=== PATIENT | female | born 1955 ===

== ENCOUNTER → 2017-01-23 | Day surgery (SDC) | payer BC ==
[2017-01-23] VITALS (15 sets, daily range): BP systolic 101–138; BP diastolic 51–72
[~2017-01-23] VITALS: Ht 157.5 cm; Wt 77.1 kg
[~2017-01-23] MED LIST: Bupivacaine w/Epi 0.25% 30ml Vial INJ ONE; CALCIUM600 M1 PO; Dexamethasone 4mg/ml vial ONE; Glycopyrrolate 0.2mg/ml 1ml Vial ONE; HYDROmorphone 1mg/ml Carpuject SUBQ PRN; Hydromorphone 0.5mg/0.5ml inj IVP PRN; Iothalamate Meglumine 60% 30ML INJ ONE; Isovue-M 300 INJ ONE; LOSARTAN POTASS25 MG ORAL; Metoclopramide 10mg/2ml Inj IVP ONE; Metoclopramide 10mg/2ml Inj ONE; Midazolam 2mg/2ml Inj ONE; NS Irrig 1000ml ONE; Neostigmine 1mg/ml 10ml Inj ONE; Norco 5mg/325mg tab ORAL PRN; Propofol 10mg/ml 20ml IV ONE; Sterile Water Irrig 1000ml IRRIG ONE; Succinylcholine 20mg/ml 10ml vial ONE; VITAMIN D1000 UNI1 ORAL; Zemuron 50mg/5ml Inj IV ONE; fentaNYL 100 mcg/2 mL IV ONE
--- NOTE | 2017-01-23 07:00 | Pre-Procedure Note/Attestation ---
Pre-Procedure Note/Attestation Complete Prior to Procedure Procedure Narrative: laparoscopic cholecystectomy, possible open Indications for Procedure Pre-Operative Diagnosis: cholelithiasis, cholecystitis Attestation I attest that I discussed the nature of the procedure; its benefits; risks and complications; and alternatives (and the risks and benefits of such alternatives ), prior to the procedure, with the patient (or the patient's legal group sales representative). I attest that, if there was a reasonable possibility of needing a blood transfusion, the patient (or the patient's legal group sales representative) was given the [facility] standardized written summary, pursuant to the [place] Blood Safety Act ([place] Health and Safety Code # 1645, as amended). I attest that I re-evaluated the patient just prior to the surgery and that there has been no change in the patient's H&P, except as documented below: EMANUEL DAVIS Jan 23, 2017 07:00
--- NOTE | 2017-01-23 08:06 | Anethesia Preoperative Eval ---
Anesthesia Pre-op PMH/ROS General Date of Evaluation: Jan 23, 2017 Time of Evaluation: 07:20 Anesthesiologist: DEVAUGHN ASA Score: ASA 2 Mallampati Score Class I : Soft palate, uvula, fauces, pillars visible Class II: Soft palate, uvula, fauces visible Class III: Soft palate, base of uvula visible Class IV: Only hard plate visible Mallampati Classification: Class III Surgeon: SUSAN Diagnosis: GALLSTONES Surgical Procedure: LAP CHOLY Anesthesia History: none Family History: no anesthesia problems Allergies: Coded Allergies: No Known Allergies (Unverified , 01/22/17) Medications: see eMAR Past Medical History Cardiovascular: Reports: HTN Pulmonary: Denies: COPD, ZAINA, asthma, other Gastrointestinal/Genitourinary: Denies: CRI, ESRD, GERD, other Neurologic/Psychiatric: Denies: CVA, TIA, dementia, depression/anxiety, other Endocrine: Denies: DM, hypothyroidism, other, steroids HEENT: Denies: [place] (L), [place] (R), cataract (L), cataract (R), glaucoma, other Hematology/Immune: Denies: DVT, anemia, bleeding disorder, other Musculoskeletal/Integumentary: Denies: DDD, DJD, OA, RA, edema, other PSxH Narrative: Anesthesia Pre-op Phys. Exam Physician Exam Last Vital Signs Date Time Temp Pulse Resp B/P Pulse Ox O2 Delivery O2 Flow Rate FiO2 01/23/17 05:43 97.2 74 18 138/72 95 Room Air Constitutional: NAD Neurologic: CN 2-12 intact Cardiovascular: RRR Respiratory: CTA Gastrointestinal: S/NT/ND Airway Exam Mallampati Score: Class III MO: full ROM: full Teeth: intact Dentures: lower Anesthesia Pre-op A/P Studies Pre-op Studies: EKG - WNL Risk Assessment & Plan Assessment: ASA2 Plan: GET Status Change Before Surgery: No Pre-Antibiotics Drug: ANCEF Given Within 1 Hr of Incision: Yes Time Given: 07:40 HUA CANTRO M.D. Jan 23, 2017 08:06
--- NOTE | 2017-01-23 08:08 | Immediate Post-Op Evaluation ---
Immediate Post-Op Evalulation Immediate Post-Op Evalulation Procedure: michele holmany Date of Evaluation: Jan 23, 2017 Time of Evaluation: 09:00 IV Fluids: 750 Blood Products: 0 Estimated Blood Loss: 0 Urinary Output: 0 Blood Pressure Systolic: 132 Blood Pressure Diastolic: 67 Pulse Rate: 77 Respiratory Rate: 12 O2 Sat by Pulse Oximetry: 98 Temperature (Fahrenheit): 99 Pain Score (1-10): 1 Nausea: No Vomiting: No Patient Status: awake, patent, none Hydration Status: adequate Drug: ANCEF Given Within 1 Hr of Incision: Yes Time Given: 07:40 HUA CANTOR M.D. Jan 23, 2017 08:08
--- NOTE | 2017-01-23 08:09 | 48 Hour Post Anesthesia Eval ---
Post Anesthesia Evaluation Procedure: lap choly Date of Evaluation: Jan 23, 2017 Time of Evaluation: 12:00 Blood Pressure Systolic: 145 Pulse Rate: 78 Respiratory Rate: 14 Temperature (Fahrenheit): 97.4 O2 Sat by Pulse Oximetry: 99 Airway: patent Nausea: No Vomiting: No Pain Intensity: 1 Hydration Status: adequate Cardiopulmonary Status: WNL Mental Status/LOC: patient returned to baseline Post-Anesthesia Complications: 0 Follow-up care needed: ready to discharge HUA CANTOR M.D. Jan 23, 2017 08:09
--- NOTE | 2017-01-23 09:03 | Brief Operative Note ---
Immediate Post Operative Note Operative Note Pre-op Diagnosis: cholelithiasis, cholecystitis Post-op Diagnosis: same as pre-op Surgeon: carlos Applied Statistician: william Anesthesiologist: rishabh Anesthesia: general Complications: yes - GB Estimated Blood Loss: minimal Drains: none Implant(s) used?: No EMANUEL DAVIS Jan 23, 2017 09:03
--- NOTE | 2017-01-23 19:38 | Operative Note - Dictated ---
DATE OF OPERATION: 01/23/2017 SURGEON: Raj Hanley M.D. SECONDARY SPANISH TEACHER: Dr. Brandon Monsalve. ANESTHESIOLOGIST: Dr. Andino. ANESTHESIA: General endotracheal tube. PREOPERATIVE DIAGNOSIS: Cholelithiasis and cholecystitis. POSTOPERATIVE DIAGNOSIS: Cholelithiasis and cholecystitis. NAME OF OPERATION: Laparoscopic cholecystectomy. FINDINGS AND INDICATIONS: The patient is a 62-year-old Latin female with a history of progressively worsening intermittent abdominal pain episodes in the right upper quadrant and epigastrium from several months ago. Because of that, she has had ultrasounds that revealed multiple gallstones and at surgery indeed. These were found with some adhesions of the gallbladder to the omentum, which were mobilized and to the right colonic area, which were also mobilized off the liver. The procedure was done uneventfully and the cystic duct was tiny as well as the common bile duct and the procedure was done without incident. DESCRIPTION OF PROCEDURE: With the patient lying in the supine position on the operating table, under general anesthesia with the entire abdominal region prepped and draped in usual sterile fashion with Betadine, an infraumbilical stab incision was made. Subcutaneous tissues were divided. The Veress needle was introduced and 3.5 liters of CO2 insufflated. The incision was then enlarged and a 5 mm trocar advanced through which a laparoscope was placed visualizing the above findings. A separate subxiphoid 11 mm trocar was placed and two 5-mm trocars in the right mid abdomen and the right upper quadrant, which gallbladder fundus and body were placed on traction. Retrograde dissection of the gallbladder was then continued isolating the cystic duct and the cystic artery, both of which were double clipped and transected. The gallbladder was then removed from the liver bed by blunt and sharp dissections obtaining hemostasis with the cautery. The specimen was then placed into an EndoCatch device and removed through the subxiphoid incision after evacuating the stones with a ring forceps. The subhepatic and subdiaphragmatic areas were irrigated with ample amounts of normal saline. Hemostasis was double checked, which was adequate with the cautery and then the CO2 was deflated. The trocars were removed and the incision was closed with 0 Vicryl fascial sutures and 4-0 Vicryl subcuticular sutures and Steri-Strips. Marcaine 0.5% with epinephrine 30 mL was injected for long-acting local anesthetic. The patient tolerated the procedure well. Estimated blood loss was less than 10 mL. Sponge and needle counts were correct. She went to the recovery room in stable condition. Raj Hanley M.D. DR: HAYES JOB#: [id number] CC:
[2017-01-30 12:19] VITALS: BP_DIAS 67
[2017-01-30 12:20] VITALS: BP_SYST 145
== END | disposition home or self-care (01) ==
LOC: SUR 05:14
DX: K80.10 Calculus of gallbladder with chronic cholecystitis without obstruction (principal); I10 Essential (primary) hypertension
CPT/HCPCS: 47562; J0330; J0690; J1100; J1170; J2250; J2405; J2704; J2710; J2765; J3010; 94003; 94150